=== PATIENT | male | born 1985 | race Caucasian/White ===

== ENCOUNTER 2017-01-11 05:24 | Emergency (ER) | payer SELFPAY ==
[~2017-01-11] VITALS: Ht 172.7 cm; Wt 78.0 kg
[~2017-01-11 05:24] MED LIST: ALEV220T14 PO; TYLE325T PO
[2017-01-11 05:33] VITALS: BP 168/85; PULSE 86; RESP 18; TEMP 98.7; O2SAT 99
[2017-01-11] MEDS ORDERED: SODIUM CHLOR 0.9% 1000 ML INJ 1,000 ML IV ONE (05:48)
[2017-01-11] MEDS ORDERED: ONDANSETRON HCL 4 MG/2 ML VIAL IVP ONE (06:00)
[2017-01-11] MEDS ORDERED: HYDROmorphone HCL PF 2 MG/ML VIAL IVS ONE (06:00)
[2017-01-11] MEDS ORDERED: SODIUM CHLORIDE 0.9% FLUSH 10 ML FLUSH IVF PRN (06:00)
--- NOTE | 2017-01-11 06:13 | PD ---
HPI Chief Complaint: GI Complaint Time Seen by Provider: 05:42 Travel History International Travel<30 days: No Contact w/Intl Traveler<30days: No Traveled to known affect area: No History of Present Illness HPI 31-year-old male presents with sudden onset of right sided lateral flank with radiation to his testicle. The patient reports associated nausea vomiting. He denies a previous history of pain. Denies a fevers, chills. There is no reported diarrhea. The patient states he feels as though he needs to urinate but can't at this time. PFSH Past Medical History Asthma: Yes (as child) Diminished Hearing: No Respiratory: Yes (asthma as child) Immunizations Current: Yes Social History Alcohol Use: Yes (RARE) Tobacco Use: Yes (1/2 pk) Substance Use: No Allergies-Medications (Allergen,Severity, Reaction): Coded Allergies: Imitrex (Verified Allergy, Unknown, Anaphylaxis, 01/11/17) Zithromax (Verified Allergy, Unknown, rash, 01/11/17) Amoxicillin (Verified Adverse Reaction, Unknown, vomiting, 01/11/17) Reported Meds & Prescriptions Reported Meds & Active Scripts Active Reported Tylenol (Acetaminophen) 325 Mg Tab 650 Mg PO Q4H PRN Aleve Arthritis (Naproxen Sodium) 220 Mg Tab 220 Mg PO BID Review of Systems Except as stated in HPI: all other systems reviewed are Neg General / Constitutional: No: Fever, Chills HENT: No: Headaches, Lightheadedness, Neck Stiffness Cardiovascular: No: Chest Pain or Discomfort, Palpitations Respiratory: No: Cough, Shortness of Breath Gastrointestinal: Positive: Nausea, Vomiting, Abdominal Pain (right flank rating to the groin) Genitourinary: No: Frequency, Dysuria, Decreased Urinary Output Musculoskeletal: Positive: Pain (right lateral flank), No: Weakness Neurologic: No: Weakness, Headache Physical Exam Narrative GENERAL: Well-nourished, well-developed patient in severe writhing pain.. SKIN: Focused skin assessment warm/dry. HEAD: Normocephalic/atraumatic. EYES: No scleral icterus. No injection or drainage. NECK: Supple, trachea midline. CARDIOVASCULAR: Regular rate and rhythm without murmurs, gallops, or rubs. RESPIRATORY: Breath sounds equal bilaterally. No accessory muscle use. GASTROINTESTINAL: Abdomen soft, non-tender, nondistended. MUSCULOSKELETAL: No cyanosis, or edema. BACK: Nontender without obvious deformity. No CVA tenderness. Subjective stabbing pain in the left lateral flank. NEUROLOGICAL: Awake and alert. Cranial nerves II through XII intact. Motor grossly within normal limits. Five out of 5 muscle strength in all muscle groups. Normal speech. Data Data Last Documented VS Vital Signs Date Time Temp Pulse Resp B/P Pulse Ox O2 Delivery O2 Flow Rate FiO2 01/11/17 06:52 60 18 129/63 95 Room Air 01/11/17 05:33 98.7 Orders Complete Blood Count With Diff (01/11/17 05:48) Basic Metabolic Panel (Bmp) (01/11/17 05:48) Urinalysis - C+S If Indicated (01/11/17 05:48) Ecg Monitoring (01/11/17 05:48) Iv Access Insert/Monitor (01/11/17 05:48) Hydromorphone Pf Inj (Dilaudid Pf Inj) (01/11/17 06:00) Ondansetron Inj (Zofran Inj) (01/11/17 06:00) Sodium Chloride 0.9% Flush (Ns Flush) (01/11/17 06:00) Sodium Chlor 0.9% 1000 Ml Inj (Ns 1000 M (01/11/17 05:48) Labs Laboratory Tests Test 01/11/17 06:12 White Blood Count 15.1 TH/MM3 Red Blood Count 5.06 MIL/MM3 Hemoglobin 15.3 GM/DL Hematocrit 45.0 % Mean Corpuscular Volume 89.0 FL Mean Corpuscular Hemoglobin 30.3 PG Mean Corpuscular Hemoglobin 34.0 % Concent Red Cell Distribution Width 13.5 % Platelet Count 264 TH/MM3 Mean Platelet Volume 7.8 FL Neutrophils (%) (Auto) 76.3 % Lymphocytes (%) (Auto) 15.5 % Monocytes (%) (Auto) 5.8 % Eosinophils (%) (Auto) 2.1 % Basophils (%) (Auto) 0.3 % Neutrophils # (Auto) 11.6 TH/MM3 Lymphocytes # (Auto) 2.4 TH/MM3 Monocytes # (Auto) 0.9 TH/MM3 Eosinophils # (Auto) 0.3 TH/MM3 Basophils # (Auto) 0.0 TH/MM3 CBC Comment DIFF FINAL Differential Comment Sodium Level 141 MEQ/L Potassium Level 4.6 MEQ/L Chloride Level 111 MEQ/L Carbon Dioxide Level 21.1 MEQ/L Anion Gap 9 MEQ/L Blood Urea Nitrogen 13 MG/DL Creatinine 0.89 MG/DL Estimat Glomerular Filtration 100 ML/MIN Rate Random Glucose 106 MG/DL Calcium Level 9.6 MG/DL MDM Medical Decision Making Medical Screen Exam Complete: Yes Emergency Medical Condition: Yes Differential Diagnosis Kidney stone versus appendicitis versus urinary retention Narrative Course 31-year-old male presents with sudden onset of left sided flank pain with radiation to his groin. The patient has signs and symptoms that appear to be suspicious for acute renal lithiasis. White count is elevated at 14,000. This is likely the margination secondary to his retching and pain. We are awaiting urinalysis. I anticipate they'll be hematuria and if so a CT scan will be ordered to confirm findings. The patient be signed out to Dr. Daren Cardoso and pending urinalysis CT scan will be ordered. Diagnosis Primary Impression: sudden onset of right flank pain. Chaka Granado MD Jan 11, 2017 06:13 Chaka Granado MD Jan 11, 2017 06:13
[2017-01-11 06:23] LABS: AUTOMATED NEUTROPHIL # 11.6 TH/MM3 (1.8-7.7); BASOPHIL % 0.3 % (0.0-2.0); EOSINOPHIL # 0.3 TH/MM3 (0-0.4); EOSINOPHIL % 2.1 % (0.0-4.0); HEMO FLAGS DIFF FINAL; LYMPH % 15.5 % (9.0-44.0); LYMPHOCYTE # 2.4 TH/MM3 (1.0-4.8); MEAN CORPUSCULAR HEMOGLOBIN 30.3 PG (27.0-34.0); MONO % 5.8 % (0.0-8.0); NEUT % 76.3 % (16.0-70.0); PLATELET COUNT 264 TH/MM3 (150-450); RED BLOOD COUNT 5.06 MIL/MM3 (4.50-5.90); RED CELL DISTRIBUTION WIDTH 13.5 % (11.6-17.2); WHITE BLOOD COUNT 15.1 TH/MM3 (4.0-11.0)
[2017-01-11 06:41] LABS: BICARBONATE 21.1 MEQ/L (21.0-32.0); POTASSIUM 4.6 MEQ/L (3.5-5.1)
[2017-01-11 06:52] VITALS: BP 129/63; PULSE 60; RESP 18; O2SAT 95
--- NOTE | 2017-01-11 07:12 | PD ---
Physical Exam Date Seen by Provider: Jan 11, 2017 Time Seen by Provider: 07:10 Narrative The patient is a 31-year-old male who was initially evaluated by the previous physician, Dr. Granado. Please refer to the initial history, physical, diagnostic evaluation, treatment modality plan. The patient was signed out at 7 AM with UA evaluation pending for possible nephrolithiasis with severe right lower quadrant abdominal pain. Data Data Last Documented VS Vital Signs Date Time Temp Pulse Resp B/P Pulse Ox O2 Delivery O2 Flow Rate FiO2 01/11/17 06:52 60 18 129/63 95 Room Air 01/11/17 05:33 98.7 Orders Complete Blood Count With Diff (01/11/17 05:48) Basic Metabolic Panel (Bmp) (01/11/17 05:48) Urinalysis - C+S If Indicated (01/11/17 05:48) Ecg Monitoring (01/11/17 05:48) Iv Access Insert/Monitor (01/11/17 05:48) Hydromorphone Pf Inj (Dilaudid Pf Inj) (01/11/17 06:00) Ondansetron Inj (Zofran Inj) (01/11/17 06:00) Sodium Chloride 0.9% Flush (Ns Flush) (01/11/17 06:00) Sodium Chlor 0.9% 1000 Ml Inj (Ns 1000 M (01/11/17 05:48) Ct Abd/Pel W Iv Contrast(Rout) (01/11/17 07:36) Oximetry (01/11/17 07:36) Sodium Chloride 0.9% Flush (Ns Flush) (01/11/17 07:45) Hydromorphone Pf Inj (Dilaudid Pf Inj) (01/11/17 08:15) Iohexol 350 Inj (Omnipaque 350 Inj) (01/11/17 08:31) Labs Laboratory Tests Test 01/11/17 01/11/17 06:12 06:49 White Blood Count 15.1 TH/MM3 Red Blood Count 5.06 MIL/MM3 Hemoglobin 15.3 GM/DL Hematocrit 45.0 % Mean Corpuscular Volume 89.0 FL Mean Corpuscular Hemoglobin 30.3 PG Mean Corpuscular Hemoglobin 34.0 % Concent Red Cell Distribution Width 13.5 % Platelet Count 264 TH/MM3 Mean Platelet Volume 7.8 FL Neutrophils (%) (Auto) 76.3 % Lymphocytes (%) (Auto) 15.5 % Monocytes (%) (Auto) 5.8 % Eosinophils (%) (Auto) 2.1 % Basophils (%) (Auto) 0.3 % Neutrophils # (Auto) 11.6 TH/MM3 Lymphocytes # (Auto) 2.4 TH/MM3 Monocytes # (Auto) 0.9 TH/MM3 Eosinophils # (Auto) 0.3 TH/MM3 Basophils # (Auto) 0.0 TH/MM3 CBC Comment DIFF FINAL Differential Comment Sodium Level 141 MEQ/L Potassium Level 4.6 MEQ/L Chloride Level 111 MEQ/L Carbon Dioxide Level 21.1 MEQ/L Anion Gap 9 MEQ/L Blood Urea Nitrogen 13 MG/DL Creatinine 0.89 MG/DL Estimat Glomerular Filtration 100 ML/MIN Rate Random Glucose 106 MG/DL Calcium Level 9.6 MG/DL Urine Color YELLOW Urine Turbidity CLEAR Urine pH 5.5 Urine Specific [place] 1.021 Urine Protein NEG mg/dL Urine Glucose (UA) NEG mg/dL Urine Ketones NEG mg/dL Urine Occult Blood NEG Urine Nitrite NEG Urine Bilirubin NEG Urine Urobilinogen LESS THAN 2.0 MG/DL Urine Leukocyte Esterase NEG Urine RBC LESS THAN 1 /hpf Urine WBC LESS THAN 1 /hpf Urine Mucus FEW /lpf Microscopic Urinalysis Comment CULT NOT INDICATED MDM Medical Record Reviewed: Yes Supervised Visit with EFRAIN: No Interpretation(s) Laboratory Tests Test 01/11/17 01/11/17 06:12 06:49 White Blood Count 15.1 TH/MM3 Red Blood Count 5.06 MIL/MM3 Hemoglobin 15.3 GM/DL Hematocrit 45.0 % Mean Corpuscular Volume 89.0 FL Mean Corpuscular Hemoglobin 30.3 PG Mean Corpuscular Hemoglobin 34.0 % Concent Red Cell Distribution Width 13.5 % Platelet Count 264 TH/MM3 Mean Platelet Volume 7.8 FL Neutrophils (%) (Auto) 76.3 % Lymphocytes (%) (Auto) 15.5 % Monocytes (%) (Auto) 5.8 % Eosinophils (%) (Auto) 2.1 % Basophils (%) (Auto) 0.3 % Neutrophils # (Auto) 11.6 TH/MM3 Lymphocytes # (Auto) 2.4 TH/MM3 Monocytes # (Auto) 0.9 TH/MM3 Eosinophils # (Auto) 0.3 TH/MM3 Basophils # (Auto) 0.0 TH/MM3 CBC Comment DIFF FINAL Differential Comment Sodium Level 141 MEQ/L Potassium Level 4.6 MEQ/L Chloride Level 111 MEQ/L Carbon Dioxide Level 21.1 MEQ/L Anion Gap 9 MEQ/L Blood Urea Nitrogen 13 MG/DL Creatinine 0.89 MG/DL Estimat Glomerular Filtration 100 ML/MIN Rate Random Glucose 106 MG/DL Calcium Level 9.6 MG/DL Urine Color YELLOW Urine Turbidity CLEAR Urine pH 5.5 Urine Specific [place] 1.021 Urine Protein NEG mg/dL Urine Glucose (UA) NEG mg/dL Urine Ketones NEG mg/dL Urine Occult Blood NEG Urine Nitrite NEG Urine Bilirubin NEG Urine Urobilinogen LESS THAN 2.0 MG/DL Urine Leukocyte Esterase NEG Urine RBC LESS THAN 1 /hpf Urine WBC LESS THAN 1 /hpf Urine Mucus FEW /lpf Microscopic Urinalysis Comment CULT NOT INDICATED Last Impressions Abdomen/Pelvis CT 01/11/17 0736 Signed Impressions: Service Date/Time: Wednesday, January 11, 2017 08:22 - CONCLUSION: Unremarkable examination. Ryan Murcia MD Differential Diagnosis Differential diagnosis includes nephrolithiasis, pyelonephritis, hydronephrosis , appendicitis, testicular torsion, mesenteric adenitis, diverticulitis. Narrative Course The patient was initially evaluated by the previous physician, Dr. Granado. Please refer to the initial history, physical, diagnostic evaluation, and treatment modality plan. The patient was signed out at 7 AM with UA pending for possible nephrolithiasis with severe right lower quadrant abdominal pain. The patient's UA is unremarkable. White count was mildly elevated at 15.6, therefore, CT of the abdomen and pelvis with IV contrast was ordered. There is no evidence of appendicitis or nephrolithiasis. The patient was reexamined, the genitourinary system was examined, circumcised phallus, no evidence of pain over the testicles or significant hernia. exam was unremarkable, do not believe this is torsion. The patient's symptoms had improved, he will be discharged home on Bentyl, [place], and Zofran. He is advised to follow-up with a primary physician and return if symptoms worsen or progress. Diagnosis Primary Impression: sudden onset of right flank pain. Patient Instructions: General Instructions, Narcotic given in the ED Additional Instruction: Medications as directed. Return if symptoms worsen or progress. Follow-up with your primary physician. Please provide the patient a copy of his CT results and lab results at discharge. Med/Other Pt SpecificInfo: Prescription(s) given Scripts Ondansetron Odt (Zofran Odt)4 Mg Tab4 Mg SL Q6HR PRN (Nausea/Vomiting) #7 TAB Ref 0 Prov:Daren Cardoso MD 01/11/17 Hydrocodone-Acetaminophen ([place])5-325 mg Tab1 Tab PO Q6H PRN (PAIN) #12 TAB Ref 0 Prov:Daren Cardoso MD 01/11/17 Dicyclomine (Bentyl)10 Mg Cap10 Mg PO QID #15 CAP Ref 0 Prov:Daren Cardoso MD 01/11/17 Disposition: 01 DISCHARGE HOME Condition: Stable Daren Cardoso MD Jan 11, 2017 07:12
[2017-01-11 07:33] LABS: BLOOD, URINE NEG (NEG); COMMENT (UR) CULT NOT INDICATED; CULTURE IF INDICATED CULT NOT INDICATED; GLUCOSE,URINE NEG (NEG); KETONE, URINE NEG (NEG); MUCUS URINE FEW /lpf (OCC); NITRITE,URINE NEG (NEG); PH, URINE 5.5 (5.0-8.5); URINE COLOR YELLOW (YELLW/STRAW)
[2017-01-11] MEDS ORDERED: SODIUM CHLORIDE 0.9% FLUSH 10 ML FLUSH IV FLUSH PRN (07:45)
[2017-01-11] MEDS ORDERED: HYDROmorphone HCL PF 1 MG/ML VIAL IV PUSH ONE ×2 (08:15→09:30)
[2017-01-11] MEDS ORDERED: IOHEXOL 350 MG/ML 10 ML VIAL (for RAD DIAG) IV ONE (08:31)
--- NOTE | 2017-01-11 08:49 | RADRPT ---
EXAM DATE/TIME: 01/11/2017 08:22 [facility] COMPARISON: No previous studies available for comparison. INDICATIONS : Abdomen pain. IV CONTRAST: 100 cc Omnipaque 350 (iohexol) IV ORAL CONTRAST: No oral contrast ingested. RADIATION DOSE: 9.96 CTDIvol (mGy) MEDICAL HISTORY : None SURGICAL HISTORY : None. ENCOUNTER: Initial ACUITY: 1 day PAIN SCALE: 5/10 LOCATION: Bilateral lower quadrant TECHNIQUE: Volumetric scanning of the abdomen and pelvis was performed. Using automated exposure control and ad justment of the mA and/or kV according to patient size, radiation dose was kept as low as reasonably achievable to obtain optimal diagnostic quality images. DICOM format image data is available electro nically for review and comparison. FINDINGS: LOWER LUNGS: The visualized lower lungs are clear. LIVER: Homogeneous density without lesion. There is no dilation of the biliary tree. No calcified [place] es. SPLEEN: Normal size without lesion. PANCREAS: Within normal limits. KIDNEYS: Normal in size and shape. There is no mass, stone or hydronephrosis. ADRENAL GLANDS: Within normal limits. VASCULAR: There is no aortic aneurysm. BOWEL/MESENTERY: The stomach, small bowel, and colon demonstrate no acute abnormality. There is no free intraperitone al air or fluid. The appendix is unremarkable. No inflammatory changes. ABDOMINAL WALL: Within normal limits. RETROPERITONEUM: There is no lymphadenopathy. BLADDER: No wall thickening or mass. REPRODUCTIVE: Within normal limits. INGUINAL: There is no lymphadenopathy or hernia. MUSCULOSKELETAL: Within normal limits for patient age. CONCLUSION: Unremarkable examination. Ryan Murcia MD on January 11, 2017 at 8:42 Board Certified Radiologist. This report was verified electronically.
[2017-01-11 09:15] VITALS: O2SAT 98
[2017-01-11 09:16] VITALS: BP 125/60; PULSE 62; RESP 14; O2SAT 98
[2017-01-11] MEDS ORDERED: DICY10 PO (09:16)
[2017-01-11] MEDS ORDERED: ZOFR4TAB3 SL (09:16)
[2017-01-11] MEDS ORDERED: NORC5TAB PO (09:16)
== END 2017-01-11 09:43 | disposition home or self-care (01) ==
LOC: NEPE 05:24
DX: R10.9 Unspecified abdominal pain (principal); F17.210 Nicotine dependence, cigarettes, uncomplicated
CPT/HCPCS: 74177; 80048; 81001; 85025; 96361; 96374; 96375; 96376; 99285; J1170; J2405; J7030; Q9967

== ENCOUNTER 2017-06-14 15:43 | Emergency (ER) | payer SELFPAY ==
[~2017-06-14] VITALS: Ht 172.7 cm; Wt 81.0 kg
[~2017-06-14 15:43] MED LIST changes: +DICY10 PO; +NORC5TAB PO; +ZOFR4TAB3 SL
[2017-06-14 15:51] VITALS: BP 159/83; PULSE 89; RESP 16; TEMP 98.7; O2SAT 99
--- NOTE | 2017-06-14 16:54 | PD ---
HPI Chief Complaint: Injury Time Seen by Provider: 16:48 Travel History International Travel<30 days: No Contact w/Intl Traveler<30days: No Traveled to known affect area: No History of Present Illness HPI 31-year-old male here with left foot pain and swelling after a martin joist from a ceiling fell onto his foot all at work approximately one hour ago. He has pain and swelling to the dorsal aspect of the toe. He denies paresthesia or weakness of the toe. The ports the pain is constant, throbbing. Severity 8/ 10. PFSH Past Medical History Asthma: Yes (as child) Diminished Hearing: No Respiratory: Yes (asthma as child) Immunizations Current: Yes Social History Alcohol Use: Yes (RARE) Tobacco Use: Yes (1/2 pk) Substance Use: No Allergies-Medications (Allergen,Severity, Reaction): Coded Allergies: azithromycin (Unverified Allergy, Unknown, rash, 06/14/17) sumatriptan (Unverified Allergy, Unknown, Anaphylaxis, 06/14/17) amoxicillin (Unverified Adverse Reaction, Unknown, vomiting, 06/14/17) Reported Meds & Prescriptions Reported Meds & Active Scripts Active Ultram (Tramadol HCl) 50 Mg Tab 50 Mg PO Q6H PRN Zofran Odt (Ondansetron Odt) 4 Mg Tab 4 Mg SL Q6HR PRN [place] (Hydrocodone-Acetaminophen) 5-325 mg Tab 1 Tab PO Q6H PRN Bentyl (Dicyclomine HCl) 10 Mg Cap 10 Mg PO QID Reported Tylenol (Acetaminophen) 325 Mg Tab 650 Mg PO Q4H PRN Aleve Arthritis (Naproxen Sodium) 220 Mg Tab 220 Mg PO BID Review of Systems Except as stated in HPI: all other systems reviewed are Neg Physical Exam Narrative GENERAL: Alert male in no distress SKIN: Warm and dry. HEAD: Normocephalic. EYES: No scleral icterus. No injection or drainage. NECK: Supple, trachea midline. No JVD or lymphadenopathy. CARDIOVASCULAR: Regular rate and rhythm without murmurs, gallops, or rubs. RESPIRATORY: Breath sounds equal bilaterally. No accessory muscle use. GASTROINTESTINAL: Abdomen soft, non-tender, nondistended. MUSCULOSKELETAL: No cyanosis. Left lower extremity: Notable swelling and tenderness to the dorsal aspect of the left foot. Brisk cap refill. 2+ dorsal pedis pulse. Patient is able to flex and extend his toes. Data Data Last Documented VS Vital Signs Date Time Temp Pulse Resp B/P (MAP) Pulse Ox O2 Delivery O2 Flow Rate FiO2 06/14/17 15:51 98.7 89 16 159/83 (108) 99 Orders Orders Foot, Complete ([id number]) (06/14/17 ) Ketorolac Inj (Toradol Inj) (06/14/17 17:00) Ed Discharge Order (06/14/17 17:36) Splint Or Brace Apply/Monitor (06/14/17 17:36) Crutches (06/14/17 17:36) Acetamin-Hydrocod 325-5 Mg ([place] 5-325 (06/14/17 17:45) Mandatory Outpatient Referral (06/14/17 17:42) [facility] Medical Decision Making Medical Screen Exam Complete: Yes Emergency Medical Condition: Yes Differential Diagnosis Contusion, fracture, sprain Narrative Course 31-year-old male here with left foot pain and swelling after a martin Michelle fell onto his foot at work. The extremity is neurovascular intact X-ray left foot: Second metatarsal fracture. X-ray findings discussed with patient. He initially refused posterior short leg splint stating he is a villegas and has to or and unwilling to wear that. After some discussion he agreed to have posterior short leg splint placed. He was given mandatory referral for podiatry follow up. He'll be given a prescription for pain medication. Instructed ice and elevate and not weight- bear on the extremity Diagnosis Primary Impression: Metatarsal fracture Qualified Codes: S92.325A - Nondisplaced fracture of second metatarsal bone, left foot, initial encounter for closed fracture Additional Instructions: Ice and elevate the extremity. With a splint as directed. Hospital be contacting you to set up an appointment with podiatry. Scripts Tramadol (Ultram) 50 Mg Tab 50 MG PO Q6H Y for PAIN, #14 TAB 0 Refills Prov: Ceci Jacques MD 06/14/17 Disposition: 01 DISCHARGE HOME Condition: Stable [place] Jun 14, 2017 16:54
[2017-06-14] MEDS ORDERED: KETOROLAC TROMETHAMINE 60 MG/2 ML (IM) VIAL IM ONE (17:00)
[2017-06-14 17:30] VITALS: BP 143/93; PULSE 86; RESP 16; O2SAT 98
--- NOTE | 2017-06-14 17:32 | RADRPT ---
EXAM DATE/TIME: 06/14/2017 17:12 [facility] COMPARISON: No previous studies available for comparison. INDICATIONS : Left foot pain. MEDICAL HISTORY : None. SURGICAL HISTORY : None. ENCOUNTER: Initial ACUITY: 1 day PAIN SCORE: 9/10 LOCATION: Left foot. FINDINGS: 3 views of the left foot demonstrate an oblique mildly comminuted fracture of the mid second metatars al diaphysis with slight lateral and posterior displacement of the distal fragment with displacement measuring up to 3 mm. There is adjacent soft tissue swelling. No radiopaque foreign body is seen. Lis franc joint appears intact. CONCLUSION: There is an oblique mildly comminuted and displaced fracture of the mid second metatarsal diaphysis. Gumaro Mcdermott MD on June 14, 2017 at 17:27 Board Certified Radiologist. This report was verified electronically.
[2017-06-14] MEDS ORDERED: TRAM50 PO (17:38)
[2017-06-14] MEDS ORDERED: ACETAMINOPHEN/HYDROcodone 325 MG/5 MG TAB PO ONE (17:45)
[2017-06-14] MEDS ORDERED: NORC5TAB PO (18:06)
== END 2017-06-14 18:11 | disposition home or self-care (01) ==
LOC: PHEFT 15:43
DX: S92.325A Nondisplaced fracture of second metatarsal bone, left foot, initial encounter for closed fracture (principal); W20.1XXA Struck by object due to collapse of building, initial encounter
CPT/HCPCS: 73630; 96372; 99284; E0113; J1885

== ENCOUNTER 2017-06-16 12:50 | Emergency (ER) | payer SELFPAY ==
[2017-06-16 12:53] VITALS: BP 154/84; PULSE 96; RESP 16; TEMP 98.6; O2SAT 100
--- NOTE | 2017-06-16 14:42 | PD ---
HPI Chief Complaint: Pain: Acute or Chronic Time Seen by Provider: 14:42 Travel History International Travel<30 days: No Contact w/Intl Traveler<30days: No Traveled to known affect area: No History of Present Illness HPI 31-year-old male presents to the emergency department requesting reevaluation of his left foot. Patient tells me he was diagnosed with a broken foot at [facility] on Wednesday. He was actually seen in the [facility] emergency department, diagnosed with metatarsal fracture and placed in a splint. Patient has removed the splint and states that he needs to work. He has been ambulatory on his broken foot. He represents for worsening pain, requesting pain control and a walking boot. Denies any new injury. No fever or chills. No other symptoms to report. PFSH Past Medical History Asthma: Yes (as child) Diminished Hearing: No Respiratory: Yes (asthma as child) Immunizations Current: Yes Social History Alcohol Use: Yes (RARE) Tobacco Use: Yes (1/2 pk) Substance Use: No Allergies-Medications (Allergen,Severity, Reaction): Coded Allergies: azithromycin (Unverified Allergy, Unknown, rash, 06/14/17) sumatriptan (Unverified Allergy, Unknown, Anaphylaxis, 06/14/17) amoxicillin (Unverified Adverse Reaction, Unknown, vomiting, 06/14/17) Reported Meds & Prescriptions Reported Meds & Active Scripts Active [place] (Hydrocodone-Acetaminophen) 5 Mg-325 Mg Tab 1 Tab PO Q4H PRN Zofran Odt (Ondansetron Odt) 4 Mg Tab 4 Mg SL Q6HR PRN [place] (Hydrocodone-Acetaminophen) 5-325 mg Tab 1 Tab PO Q6H PRN Bentyl (Dicyclomine HCl) 10 Mg Cap 10 Mg PO QID Reported Tylenol (Acetaminophen) 325 Mg Tab 650 Mg PO Q4H PRN Aleve Arthritis (Naproxen Sodium) 220 Mg Tab 220 Mg PO BID Review of Systems Except as stated in HPI: all other systems reviewed are Neg Physical Exam Narrative Well-nourished male patient, ambulatory with an antalgic gait, no acute distress. Mild edema to the left foot. There is no obvious deformity however assessment is limited here in triage. Patient appears with regular unlabored respirations. Lightly elevated heart rate.. Data Data Last Documented VS Vital Signs Date Time Temp Pulse Resp B/P (MAP) Pulse Ox O2 Delivery O2 Flow Rate FiO2 06/16/17 12:53 98.6 96 16 154/84 (107) 100 MDM Medical Decision Making Medical Screen Exam Complete: Yes Emergency Medical Condition: Yes Medical Record Reviewed: Yes Differential Diagnosis Fracture versus contusion versus dislocation versus narcotic seeking Narrative Course 31-year-old male presents to emergency department requesting pain control and a walking boot for fracture that was diagnosed in his left foot 2 days ago. Patient appears without distress. Once a medical bed becomes available, patient will be transferred and care assumed by that provider. AMA: The risks of leaving against medical advice without further evaluation treatment were discussed with the patient. These risks include cardiac dysfunction, cardiac dysrhythmia, possible heart attack, possible stroke or . The patient indicated understanding of these risks and appeared to have the capacity to make this decision. Diagnosis Primary Impression: Foot fracture, left Disposition: 07 AGAINST MEDICAL ADVICE Condition: Stable [facility] Jun 16, 2017 14:42
== END 2017-06-16 14:50 | disposition left against medical advice (07) ==
LOC: NED 12:50
DX: S92.302A Fracture of unspecified metatarsal bone(s), left foot, initial encounter for closed fracture (principal); F17.200 Nicotine dependence, unspecified, uncomplicated; X58.XXXA Exposure to other specified factors, initial encounter
CPT/HCPCS: 99281

== ENCOUNTER 2017-12-09 16:38 | Emergency (ER) | payer SELFPAY ==
[~2017-12-09] VITALS: Ht 177.8 cm; Wt 77.0 kg
[2017-12-09 16:52] VITALS: BP 174/73; PULSE 157; RESP 22; TEMP 98.4; O2SAT 98
[2017-12-09 16:58] VITALS: PULSE 116
[2017-12-09] MEDS ORDERED: DOXYCYCLINE HYCLATE 100 MG CAP PO ONE (17:45)
[2017-12-09] MEDS ORDERED: TETANUS/DIPHTHERIA TOXOID ADULT 0.5 ML VIAL IM ONE (17:45)
[2017-12-09] MEDS ORDERED: MORPHINE SULFATE 4 MG/ML INJ IM ONE (17:45)
--- NOTE | 2017-12-09 17:48 | PD ---
HPI Chief Complaint: Bite or Sting Time Seen by Provider: 17:41 Travel History International Travel<30 days: No Contact w/Intl Traveler<30days: No Traveled to known affect area: No History of Present Illness HPI 32yo M here with pain in left foot after being stung by a sting ray about 40 minutes ago. 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 Unknown tetanus status. Denies any other complaints including other trauma, LOC, focal weakness or numbness. PFSH Past Medical History Asthma: Yes (as child) Diminished Hearing: No Respiratory: Yes (asthma as child) Immunizations Current: Yes Social History Alcohol Use: Yes (RARE) Tobacco Use: Yes (1/2 pk) Substance Use: No Allergies-Medications (Allergen,Severity, Reaction): Coded Allergies: azithromycin (Unverified Allergy, Unknown, rash, 12/09/17) sumatriptan (Unverified Allergy, Unknown, Anaphylaxis, 12/09/17) amoxicillin (Unverified Adverse Reaction, Unknown, vomiting, 12/09/17) Reported Meds & Prescriptions Reported Meds & Active Scripts Active No Active Prescriptions or Reported Medications Review of Systems Except as stated in HPI: all other systems reviewed are Neg Physical Exam Narrative GENERAL: 32yo M in moderate distress. SKIN: Focused skin assessment warm/dry. HEAD: Atraumatic. Normocephalic. EYES: Pupils equal and round. No scleral icterus. No injection or drainage. ENT: No nasal bleeding or discharge. Mucous membranes pink and moist. NECK: Trachea midline. No JVD. CARDIOVASCULAR: Tachycardic. No murmur appreciated. RESPIRATORY: No accessory muscle use. Clear to auscultation. Breath sounds equal bilaterally. GASTROINTESTINAL: Abdomen soft, non-tender, nondistended. MUSCULOSKELETAL: LLE: +puncture polly in left medial plantar surface with no active bleeding. No foreign body visualized. DP 2+. Sensation intact. FROM left ankle, knee. NEUROLOGICAL: Awake and alert. No obvious cranial nerve deficits. Motor grossly within normal limits. Normal speech. PSYCHIATRIC: Appropriate mood and affect; insight and judgment normal. Data Data Last Documented VS Vital Signs Date Time Temp Pulse Resp B/P (MAP) Pulse Ox O2 Delivery O2 Flow Rate FiO2 12/09/17 18:48 97 19 144/67 (92) 96 Room Air 12/09/17 16:52 98.4 Orders Orders Electrocardiogram (12/09/17 ) Tetanus/Diphtheria Tox Adult (Tetanus/Di (12/09/17 17:45) Doxycycline (Vibramycin) (12/09/17 17:45) Morphine Inj (Morphine Inj) (12/09/17 17:45) Foot, Limited (2vws) (12/09/17 ) Morphine Inj (Morphine Inj) (12/09/17 18:15) Morphine Inj (Morphine Inj) (12/09/17 19:15) MDM Medical Decision Making Medical Screen Exam Complete: Yes Emergency Medical Condition: Yes Differential Diagnosis Sting ray sting Narrative Course 32yo M with c/o left foot pain s/p stung by a sting ray after accidentally stepping on it. Pt said there is some shooting pain up his left leg which can be normal after sting ray sting. It is a very small wound in left medial foot with no bleeding. Updated pt's tetanus. Pt given morphine because he was in extreme pain and also soaked left foot in hot water which helped. Xray left foot: Old second metatarsal trauma. No radiopaque foreign body observed. Pt also given doxycycline to cover vibrio since he was in the water. Diagnosis Primary Impression: Contact with stingray as cause of accidental injury Patient Instructions: General Instructions Departure Forms: Tests/Procedures Additional Instructions: Please follow up with your primary care physician in 2-3 days. Return to the ED if symptoms worsen. Med/Other Pt SpecificInfo: Prescription(s) given Scripts Acetaminophen (Tylenol) 325 Mg Tab 650 MG PO Q6H Y for PAIN SCALE 1 TO 4, #20 TAB 0 Refills Prov: AjayNiharika 12/09/17 Doxycycline Hyclate (Doxycycline Hyclate) 100 Mg Cap 100 MG PO BID for Infection for 7 Days, #14 CAP 0 Refills Prov: AjayNiharika 12/09/17 Disposition: 01 DISCHARGE HOME Condition: Stable MsosNiharika December 09, 2017 17:48
[2017-12-09] MEDS ORDERED: MORPHINE SULFATE 4 MG/ML INJ IV PUSH ONE (18:15)
--- NOTE | 2017-12-09 18:31 | RADRPT ---
EXAM DATE: 12/09/2017 6:15 PM EDT AGE/SEX: 32 years / Male INDICATIONS: Stung by stingray; left foot. CLINICAL DATA: This is the patient's initial encounter. Patient reports that signs and symptoms have been present for 1 day and indicates a pain score of 10/10. MEDICAL/SURGICAL HISTORY: None. None. COMPARISON: Left foot 06/14/2017. FINDINGS: Bony structures are intact and in normal alignment. Osseous density is normal. Soft tissues are unre markable. No radiopaque foreign bodies seen. Old trauma involving the second metatarsal diaphysis. P eriosteal reaction noted. No acute fracture. No radiopaque foreign body. CONCLUSION: Old second metatarsal trauma. No radiopaque foreign body observed. Electronically signed by: Naseem Willis MD 12/09/2017 6:30 PM EDT
[2017-12-09 18:48] VITALS: BP 144/67; PULSE 97; RESP 19; O2SAT 96
[2017-12-09] MEDS ORDERED: MORPHINE SULFATE 2 MG/ML SYRINGE IV PUSH ONE (19:15)
[2017-12-09] MEDS ORDERED: DOXY100C PO (19:26)
[2017-12-09] MEDS ORDERED: TYLE325T PO (19:26)
--- NOTE | 2017-12-10 15:05 | EKG ---
Date Performed: 12/09/2017 Time Performed: 17:09:40 PTAGE: 32 years EKG: SINUS TACHYCARDIA PROBABLE INFERIOR MYOCARDIAL INFARCTION ABNORMAL ECG Heavy baseline artif act obscures precise reading. NO PREVIOUS TRACING DOCTOR: David Sevilla Interpretating Date/Time 12/10/2017 15:04:54
== END 2017-12-09 19:46 | disposition home or self-care (01) ==
LOC: NEPD 16:38
DX: T63.511A Toxic effect of contact with stingray, accidental (unintentional), initial encounter (principal); M79.672 Pain in left foot; R00.0 Tachycardia, unspecified; F17.210 Nicotine dependence, cigarettes, uncomplicated; Y92.89 Other specified places as the place of occurrence of the external cause; Z23 Encounter for immunization; Z88.0 Allergy status to penicillin; Z88.1 Allergy status to other antibiotic agents
CPT/HCPCS: 73620; 90471; 90714; 93005; 96374; 96376; 99284; J2270; 96372

== ENCOUNTER 2017-12-31 05:50 | Emergency (ER) | payer SELFPAY ==
[~2017-12-31] VITALS: Ht 172.7 cm; Wt 75.0 kg
[~2017-12-31 05:50] MED LIST changes: -ALEV220T14 PO; -DICY10 PO; +DOXY100C PO; -NORC5TAB PO; -ZOFR4TAB3 SL
[2017-12-31 05:52] VITALS: BP 155/66; PULSE 80; RESP 22; TEMP 98.4; O2SAT 95
[2017-12-31] MEDS ORDERED: SODIUM CHLORIDE 0.9% FLUSH 10 ML FLUSH IV FLUSH PRN (06:00)
--- NOTE | 2017-12-31 06:02 | PD ---
HPI Chief Complaint: Pain: Acute or Chronic Time Seen by Provider: 06:00 Travel History International Travel<30 days: No Contact w/Intl Traveler<30days: No Traveled to known affect area: No History of Present Illness HPI Patient was seen at [address] [place] [address] 2 days ago when he was evaluated for right sided chest wall pain. Patient stated that he fell down and landed on the right side of his chest wall and has had sharp pain ever since. He was told that he had a broken rib on December 29. Patient comes here today complaining that the pain is not improving as a matter of fact now that he is ran out of his pain medication it has gotten worse. Patient denies any alleviating or aggravating factors. Patient denies any associated factors such as fever, rash , neck pain, headache, abdominal pain patient also needs denies any hematuria/ dysuria/frequency/urgency... Patient also denies any runny nose sore throat or cough.. PFSH Past Medical History Asthma: Yes (as child) Diminished Hearing: No Respiratory: Yes (asthma as child) Immunizations Current: Yes Tetanus Vaccination: Unknown Influenza Vaccination: No Past Surgical History Abdominal Surgery: Yes Social History Alcohol Use: Yes (RARE) Tobacco Use: Yes (1/2 pk) Substance Use: No Allergies-Medications (Allergen,Severity, Reaction): Coded Allergies: azithromycin (Unverified Allergy, Unknown, rash, 12/31/17) sumatriptan (Unverified Allergy, Unknown, Anaphylaxis, 12/31/17) amoxicillin (Unverified Adverse Reaction, Unknown, vomiting, 12/31/17) Reported Meds & Prescriptions Reported Meds & Active Scripts Active No Active Prescriptions or Reported Medications Review of Systems General / Constitutional: No: Fever Eyes: No: Visual changes HENT: No: Headaches Cardiovascular: Positive: Chest Pain or Discomfort Respiratory: No: Shortness of Breath Gastrointestinal: No: Abdominal Pain Genitourinary: No: Dysuria Musculoskeletal: No: Pain Skin: No Rash Neurologic: No: Weakness Psychiatric: No: Depression Endocrine: No: Polydipsia Hematologic/Lymphatic: No: Easy Bruising Physical Exam Narrative GENERAL: SKIN: Warm and dry. HEAD: Atraumatic. Normocephalic. EYES: Pupils equal and round. No scleral icterus. No injection or drainage. ENT: No nasal bleeding or discharge. Mucous membranes pink and moist. NECK: Trachea midline. No JVD. CARDIOVASCULAR: Regular rate and rhythm. RESPIRATORY: No accessory muscle use. Clear to auscultation. Breath sounds equal bilaterally. FULLY REPRODUCIBLE RIGHT CHEST WALL PAIN GASTROINTESTINAL: Abdomen soft, non-tender, nondistended. MUSCULOSKELETAL: Extremities without clubbing, cyanosis, or edema. No obvious deformities. NEUROLOGICAL: Awake and alert. No obvious cranial nerve deficits. Motor grossly within normal limits. Five out of 5 muscle strength in the arms and legs. Normal speech. PSYCHIATRIC: Appropriate mood and affect; insight and judgment normal. Data Data Last Documented VS Vital Signs Date Time Temp Pulse Resp B/P (MAP) Pulse Ox O2 Delivery O2 Flow Rate FiO2 12/31/17 06:10 67 20 97 Room Air 12/31/17 05:52 98.4 155/66 (95) Orders Orders Ct Thorax/ Chest Wo Iv Contras (12/31/17 06:00) Iv Access Insert/Monitor (12/31/17 06:00) Ecg Monitoring (12/31/17 06:00) Oximetry (12/31/17 06:00) NPO (12/31/17 06:00) Sodium Chloride 0.9% Flush (Ns Flush) (12/31/17 06:00) Ketorolac Inj (Toradol Inj) (12/31/17 06:15) Morphine Inj (Morphine Inj) (12/31/17 06:15) Morphine Inj (Morphine Inj) (12/31/17 06:15) Ondansetron Odt (Zofran Odt) (12/31/17 06:45) MDM Medical Decision Making Medical Screen Exam Complete: Yes Emergency Medical Condition: Yes Medical Record Reviewed: Yes Differential Diagnosis Pneumonia versus pleurisy versus pneumothorax versus rib fracture versus rib contusion Narrative Course CT was read by radiologist and did not find evidence of broken rib, there is some underlying atelectasis versus contusion versus early infiltrate on the right area Diagnosis Primary Impression: Right-sided chest wall pain Additional Impression: Pleurisy Patient Instructions: General Instructions, Pleurisy (ED) Scripts Tramadol (Ultram) 50 Mg Tab 50 MG PO Q6H Y for PAIN for 3 Days, #12 TAB 0 Refills Prov: Steve Nina MD 12/31/17 Ciprofloxacin (Cipro) 500 Mg Tab 500 MG PO BID for Infection for 10 Days, #20 TAB 0 Refills Prov: Steve Nina MD 12/31/17 Disposition: 01 DISCHARGE HOME Condition: Stable Steve Nina MD Dec 31, 2017 06:02
[2017-12-31 06:10] VITALS: PULSE 67; RESP 20; O2SAT 97
[2017-12-31] MEDS ORDERED: KETOROLAC TROMETHAMINE 30 MG/ML (IVP) VIAL IV PUSH ONE (06:15)
[2017-12-31] MEDS ORDERED: MORPHINE SULFATE 2 MG/ML SYRINGE IV PUSH ONE (06:15)
[2017-12-31] MEDS ORDERED: MORPHINE SULFATE 4 MG/ML INJ IV PUSH ONE (06:15)
[2017-12-31] MEDS ORDERED: ONDANSETRON ODT 4 MG TAB PO ONE (06:45)
--- NOTE | 2017-12-31 06:48 | RADRPT ---
EXAM DATE: 12/31/2017 6:26 AM EDT AGE/SEX: 32 years / Male INDICATIONS: Trauma; fall. Broken ribs; rule out pneumothorax. CLINICAL DATA: This is the patient's initial encounter. Patient reports that signs and symptoms have been present for 1 day and indicates a pain score of 9/10. MEDICAL/SURGICAL HISTORY: None. None. RADIATION DOSE: 9.18 CTDI (mGy) COMPARISON: No prior exams available for comparison. TECHNIQUE: Multiple contiguous axial images were obtained through the chest without contrast. Image s were obtained in suspended respiration using multiple row detector helical technique. Using automa imelda exposure control and adjustment of the mA and/or kV according to patient size, radiation dose was kept as low as reasonably achievable to obtain optimal diagnostic quality images. DICOM format imag e data is available electronically for review and comparison. FINDINGS: Lungs: The lungs are symmetrically aerated. There is patchy infiltrate in the posterior right lower lobe. There is no pneumothorax. Mediastinum: There is good visualization of the great vessels of the middle mediastinum. No evidenc e of mediastinal or hilar adenopathy/mass. Pleurae: No evidence of focal thickening or pleural effusion. Axillae: Unremarkable. Bony Structures: Unremarkable. Miscellaneous: The examination was extended to include the upper abdomen, and both adrenal glands ar e normal in size and configuration. CONCLUSION: 1. Patchy infiltrate and/or atelectasis in the posterior right lower lobe. 2. No pneumothorax or effusion. Electronically signed by: Torin Damon MD 12/31/2017 6:47 AM EDT
[2017-12-31] MEDS ORDERED: CIPR-9 PO (06:54)
[2017-12-31] MEDS ORDERED: TRAM50 PO (06:54)
== END 2017-12-31 07:15 | disposition home or self-care (01) ==
LOC: NEPC 05:50
DX: R07.89 Other chest pain (principal); R09.1 Pleurisy; Z72.0 Tobacco use
CPT/HCPCS: 71250; 96374; 96375; 99284; J1885; J2270